=== PATIENT | female | born 1990 | race American Indian/Alaskan Native ===

== ENCOUNTER 2017-02-15 15:33 | Emergency (ER) | payer SELFPAY ==
[2017-02-15 16:42] VITALS: BP 115/51
[2017-02-15 17:18] LABS: Bilirubin,Urine NEG (Negative); Blood,Urine NEG (Negative); Ketones,Urine NEG (Negative); Mucus,Urine 1+ /HPF; Nitrite,Urine NEG (Negative); WBC,Urine < 1.0 /HPF (0.0-6.0)
[2017-02-15 17:19] LABS: Leukocyte Esterase,Urine Trace (Negative)
[2017-02-15] MEDS ORDERED: ROCEPHIN IM ONE (19:21)
[2017-02-15] MEDS ORDERED: XYLOCAINE 1% MPF 5 mL INFILTRATI ONE (19:21)
[2017-02-15] MEDS ORDERED: ZITHROMAX PO ONE (19:24)
--- NOTE | 2017-02-15 20:01 | Emergency Department Report ---
Entered by SHINE RODRIGUEZ, acting as scribe for ELFEGO ULLOA PA. ED Female HPI - General Chief complaint: Urogenital-Female Stated complaint: ABD PAIN Source: patient Mode of arrival: Ambulatory Limitations: No Limitations - History of Present Illness Initial comments: 26 year old female with no significant PMHx presents to the ED c/o vaginal discharge that began 3 days ago. Associated symptoms abdominal pain, dysuria, vaginal itching, urgency, and frequency, but she denies vaginal bleeding, nausea , vomiting, diarrhea, fever, and chills. Rates abdominal pain an 8/10 in severity. Notes sexually active without protection with 1 protection. Took Monistat 3 days ago with no relief. Reports having a primary OB, but denies making an appointment. LMP 02/06/2017. NKDA. GOLD Complaint: vaginal discharge Onset/Timin -: days(s) Location: suprapubic Radiation: non-radiating Severity: moderate Severity scale (0 -10): 8 Quality: aching Consistency: constant Improves with: none (took Monistat with no relief) Are you Now?: No Last Menstrual Period: 02/06/17 EDC: 11/13/17 Associated Symptoms: denies other symptoms, vaginal discharge, abdominal pain, dysuria. denies: vaginal bleeding, nausea/vomiting, fever/chills, hematuria, rash, shortness of breath, weakness, other (diarrhea) - Related Data Home Medications Medication Instructions Recorded Confirmed Last Taken No Known Home Medications [No 02/15/17 02/15/17 Unknown Reported Home Medications] Allergies Allergy/AdvReac Type Severity Reaction Status Date / Time No Known Allergies Allergy Unverified 02/15/17 16:42 ED Review of Systems Comment: All other systems reviewed and negative Constitutional: denies: chills, fever Respiratory: denies: orthopnea, shortness of breath, SOB with exertion, SOB at rest, stridor Cardiovascular: denies: dyspnea on exertion, orthopnea Gastrointestinal: abdominal pain. denies: nausea, vomiting, diarrhea Genitourinary: dysuria, discharge. denies: urgency, frequency, hematuria Musculoskeletal: denies: back pain Skin: denies: rash ED Past Medical Hx - Past Medical History Previous Medical History?: No - Surgical History Additional Surgical History: HERNIA REPAIR - Social History Smoking Status: Never Smoker Substance Use Type: None - Medications Home Medications: Home Medications Medication Instructions Recorded Confirmed Last Taken Type No Known Home Medications [No 02/15/17 02/15/17 Unknown History Reported Home Medications] ED Physical Exam - General Limitations: No Limitations General appearance: alert, in no apparent distress - Head Head exam: Present: atraumatic, normocephalic - Eye Eye exam: Present: normal appearance, EOMI Pupils: Present: normal accommodation - ENT ENT exam: Present: normal exam, mucous membranes moist - Neck Neck exam: Present: normal inspection, full ROM - Respiratory Respiratory exam: Present: normal lung sounds bilaterally. Absent: respiratory distress - Cardiovascular Cardiovascular Exam: Present: regular rate, normal rhythm - GI/Abdominal GI/Abdominal exam: Present: soft, normal bowel sounds. Absent: distended, tenderness, guarding, rebound, rigid - External exam: Present: normal external exam (female assembler seat present during the exam), erythema (labia), swelling, other (labia erythematous and irritated ) . Absent: lesions, lacerations, ecchymosis, bleeding Speculum exam: Present: normal speculum exam (female assembler seat present during the exam), vaginal discharge (clear), other (cervix edematous and erythematous with mucous discharge). Absent: erythema, cervical discharge, vaginal bleeding - Expanded Exam Expanded Female exam: Absent: vaginal laceration, tissue present in vagina External exam: Absent: normal (labia erythematous and irritated) Amniotic fluid: Present: none Speculum exam: Present: cervical OS closed, vaginal discharge (clear), other ( cervix edematous and erythematous with mucous discharge). Absent: vaginal bleeding - Extremities Exam Extremities exam: Present: normal inspection, full ROM - Back Exam Back exam: Present: normal inspection, full ROM. Absent: CVA tenderness (R), CVA tenderness (L) - Neurological Exam Neurological exam: Present: alert, oriented X3 - Psychiatric Psychiatric exam: Present: normal affect, normal mood - Skin Skin exam: Present: warm, dry, intact. Absent: rash ED Course Vital Signs 02/15/17 16:36 Temperature 97.4 F L Pulse Rate 96 H Respiratory 16 Rate Blood Pressure 115/51 O2 Sat by Pulse 99 Oximetry ED Medical Decision Making - Medical Decision Making Patient was evaluated in fast track area of ED by this provider. Patient presented with vaginal discharge for 3 days. Patient is in no acute distress at this time. In the ED, patient will be treated for STDs, gonorrhea and chlamydia , with a shot and oral pills. She will be discharged home. She is instructed to follow up with OB if symptoms persist. Patient verbalized understanding. She is encouraged to return to the emergency room for any worsening symptoms. ED Disposition Clinical Impression: Vagina itching, Vaginal discharge Disposition: DISCHARGED TO HOME OR SELFCARE Is pt being admited?: No Does the pt Need Aspirin: No Condition: Stable Instructions: Vaginitis (ED) Additional Instructions: You can call medical records to see if your labs are back in 3-7 days. You have been treated. You will need to come to the hospital to obtain the result. Referrals: PRIMARY CARE,MD [Primary Care Provider] - 3-5 Days Forms: Work/School Release Form(ED) This documentation as recorded by the JENNIFER lux JASMINE,accurately reflects the service I personally performed and the decisions made by me, ELFEGO ULLOA PA.
== END 2017-02-15 20:05 | disposition home or self-care (01) ==
LOC: ED 15:33
DX: N89.8 Other specified noninflammatory disorders of vagina (principal)
CPT/HCPCS: 81001; 81025; 87210; 87591; 96372; 99284; J0696

== ENCOUNTER 2017-05-17 07:43 | Emergency (ER) | payer SELFPAY ==
[2017-05-17 07:54] VITALS: BP 133/88
--- NOTE | 2017-05-17 09:49 | Emergency Department Report ---
ED Rash HPI - HPI Chief Complaint: Animal Bite Stated Complaint: INSECT BITE RT THIGH/MUSCLE PAIN/NUMBNESS/TINGLING Time Seen by Provider: 05/17/17 08:34 Duration: 2 Days Location: Lower Extremities (right thigh) Rash Symptoms: Yes Itching, No Facial Swelling, No Tongue/Oral Swelling, No Breathing Difficulties, No Choking Sensation, No Wheezing/Dyspnea, No Peeling, No Blistering, No Fever, No Lightheaded, No Malaise, No Myalgias Severity: mild Other History: 27-year-old female presents with complaint of right upper thigh skin lesion, states she broke out in a rash after being in the park and was concerned she was bitten by a spider. Patient is pointing out a bumpy vesicular rash to her upper thigh with a description of "" redness of the skin. Patient denies any fevers or chills no nausea or vomiting denies any trauma to the skin. States she has not had this before. Patient does have a history of chickenpox as a child ED Review of Systems ROS: Stated complaint: INSECT BITE RT THIGH/MUSCLE PAIN/NUMBNESS/TINGLING Other details as noted in HPI Constitutional: denies: chills, fever Eyes: denies: eye pain, eye discharge, vision change ENT: denies: ear pain, throat pain Respiratory: denies: cough, shortness of breath, wheezing Cardiovascular: denies: chest pain, palpitations Endocrine: no symptoms reported Gastrointestinal: denies: abdominal pain, nausea, diarrhea Genitourinary: denies: urgency, dysuria, discharge Musculoskeletal: denies: back pain, joint swelling, arthralgia Skin: as per HPI, rash (rash right upper thigh). denies: lesions Neurological: denies: headache, weakness, paresthesias Psychiatric: denies: anxiety, depression Hematological/Lymphatic: denies: easy bleeding, easy bruising ED Past Medical Hx - Past Medical History Previous Medical History?: No - Surgical History Additional Surgical History: HERNIA REPAIR - Social History Smoking Status: Never Smoker Substance Use Type: None - Medications Home Medications: Home Medications Medication Instructions Recorded Confirmed Last Taken Type HYDROcodone/APAP 5-325 [Boaz 1 each PO Q8H PRN #15 tablet 05/17/17 Unknown Rx 5/325] Ibuprofen [Motrin] 600 mg PO Q8H PRN #30 tablet 05/17/17 Unknown Rx Valacyclovir HCl [Valtrex] 1,000 mg PO TID #21 tablet 05/17/17 Unknown Rx Rash Exam - Exam General: Vital signs noted. No distress. Alert and acting appropriately. HEENT: No Periorbital Edema, No Conjuctival Injection, No Chemosis, No Perioral Edema, No Tongue Edema, No Uvular Edema, No Compromised Airway, No Drooling Lungs: Yes Good Air Exchange (Normal Breath Sounds), No Wheezes, No Ronchi, No Stridor, No Cough, No Labored Respirations, No Retractions, No Use of Accessory Muscles, No Other Abnormal Lung Sounds Heart: Yes Regular, No Murmur Skin: Yes Maculopapular Rash, Yes Tenderness, No Urticarial Rash, No Morbilliform rash, No Bulla(e), No Excoriations, No Erythema, No Edema, No Encrustations, No Other Other: Positive: Abdomen Normal, Neurologic Normal, Musculoskeletal Normal ED Course Vital Signs 05/17/17 07:50 Temperature 98.2 F Pulse Rate 73 Respiratory 17 Rate Blood Pressure 133/88 O2 Sat by Pulse 100 Oximetry ED Medical Decision Making - Medical Decision Making A/P: Shingles outbreak right thigh 1-Motrin, Boaz when necessary, topical lidocaine 2-Valtrex course 3-advised patient to maintain excellent hand hygiene while she has active outbreak 4- PRIMARY care follow-up Critical care attestation.: If time is entered above; I have spent that time in minutes in the direct care of this critically ill patient, excluding procedure time. ED Disposition Clinical Impression: Shingles rash Qualifiers: Herpes zoster complications: without complications Qualified Code(s): B02.9 - Zoster without complications Disposition: DC-01 TO HOME OR SELFCARE Is pt being admited?: No Does the pt Need Aspirin: No Condition: Stable Instructions: Herpes Zoster (ED) Prescriptions: HYDROcodone/APAP 5-325 [Boaz 5/325] 1 each PO Q8H PRN #15 tablet PRN Reason: Pain Ibuprofen [Motrin] 600 mg PO Q8H PRN #30 tablet PRN Reason: Pain Valacyclovir HCl [Valtrex] 1,000 mg PO TID #21 tablet Referrals: CHRISTOPHER NOEL MD [Staff Physician] - 3-5 Days [facility] [Outside] - 3-5 Days Forms: Work/School Release Form(ED) Time of Disposition: 09:56
== END 2017-05-17 10:13 | disposition home or self-care (01) ==
LOC: ED 07:43
DX: B02.9 Zoster without complications (principal)
CPT/HCPCS: 99282